=== PATIENT | female | born 1970 | race Caucasian/White ===

== ENCOUNTER 2019-10-20 07:48 | Day surgery (SDC) | payer BC ==
[~2019-10-20 07:48] MED LIST: Lactated Ringers 1,000 ML IV SCH; Lidocaine 1%/Sod Bicarbonate in NS 8.4% 1 ML Syringe IDERM PRN; Sodium Chloride 0.9% 10 ML Syringe FLUSH PRN
[2019-10-20] MEDS ORDERED: Propofol 200 MG/20 ML SDV ONE ×2 (08:06→08:51)
[2019-10-20] MEDS ORDERED: fentaNYL 100 MCG/2 ML SDV ONE (08:07)
[2019-10-20] MEDS ORDERED: Lidocaine 1% 4 ML ONE (08:07)
--- NOTE | 2019-10-20 08:24 | PCM.PREANE ---
Preanesthetic Assessment - Anesthesia/Transfusion/Family Hx Anesthesia History: Prior Anesthesia Without Reaction Transfusion History: No Prior Transfusion(s) - Physical Assessment NPO Status Date: 10/19/19 NPO Status Time: 04:00 ASA Class: 1 Mental Status: Alert & Oriented x3 Airway Class: Mallampati = 1 Dentition: Reports: Normal Dentition Thyro-Mental Finger Breadths: 3 Mouth Opening Finger Breadths: 3 ROM/Head Extension: Full Lungs: Clear to Auscultation, Normal Respiratory Effort Cardiovascular: Regular Rate, Regular Rhythm - Allergies Allergies/Adverse Reactions: Allergies Allergy/AdvReac Type Severity Reaction Status Date / Time No Known Allergies Allergy Verified 10/19/19 13:54 - Acknowledgements Anesthesia Type Planned: MAC Pt an Appropriate Candidate for the Planned Anesthesia: Yes Alternatives and Risks of Anesthesia Discussed w Pt/Guardian: Yes Pt/Guardian Understands and Agrees with Anesthesia Plan: Yes PreAnesthesia Questionnaire Gastrointestinal History: Reports: Chronic Constipation, Hemorrhoids, Other ( See Below) Other Gastrointestinal History: Abdominal Pain Genitourinary History: Reports: Other (See Below) Other Genitourinary History: Flank Pain, Hematuria Musculoskeletal History: Reports: Arthritis, Osteoporosis Psychiatric History: Reports: Anxiety, Depression, Other (See Below) Other Psychiatric History: Anxiety with flying; Insomnia Oncologic (Cancer) History: Reports: Breast - Past Surgical History HEENT Surgical History: Reports: None Cardiovascular Surgical History: Reports: None Respiratory Surgical History: Reports: None GI Surgical History: Reports: None Female Surgical History: Reports: Breast Biopsy, Mastectomy, Other (See Below ) Other Female Surgeries/Procedures: Breast Augmentation, Breast Lumpectomy, Partial Masectomy to the Left Endocrine Surgical History: Reports: None Neurological Surgical History: Reports: None Musculoskeletal Surgical History: Reports: Other (See Below) Other Musculoskeletal Surgeries/Procedures:: Patient reports right knee sugery. Oncologic Surgical History: Reports: Mastectomy Dermatological Surgical History: Reports: None - SUBSTANCE USE Smoking Status *Q: Never Smoker Recreational Drug Use History: No - HOME MEDS Home Medications: Home Meds Anastrozole [Arimidex] 1 mg PO DAILY 10/19/19 [History] Calcium Carbonate [Calcium] 500 mg PO DAILY 10/19/19 [History] Cholecalciferol (Vitamin D3) [Vitamin D3] 1 cap PO DAILY 10/19/19 [History] Escitalopram Oxalate 20 mg PO DAILY 10/19/19 [History] Fish Oil/Lemmon-3 Fatty Acids [Fish Oil 1,000 MG] 1,000 mg PO DAILY 10/19/19 [ History] LORazepam [Lorazepam] 1.5 mg PO DAILY PRN 10/19/19 [History] Magnesium Citrate 400 mg PO DAILY 10/19/19 [History] Melatonin 20 mg PO BEDTIME 10/19/19 [History] Naltrexone 4.5 mg PO BEDTIME 10/19/19 [History] - CURRENT (IN HOUSE) MEDS Current Meds: Current Medications Lactated Ringer's (Ringers, Lactated) 1,000 mls @ 125 mls/hr IV ASDIRECTED CECILIO Stop: 10/20/19 23:00 Lidocaine/Sodium Bicarbonate (Buffered Lidocaine 1% In Ns 8.4%) 0.25 ml IDERM ONETIME PRN PRN Reason: Prior to IV Start Stop: 10/20/19 18:00 Sodium Chloride (Saline Flush) 10 ml FLUSH ASDIRECTED PRN PRN Reason: Keep Vein Open Stop: 10/20/19 18:00 Discontinued Medications Fentanyl (Sublimaze) Confirm Administered Dose 100 mcg .ROUTE .STK-MED ONE Stop: 10/20/19 08:08 Lidocaine HCl (Xylocaine-Mpf 1%) Confirm Administered Dose 4 mls @ as directed .ROUTE .STK-MED ONE Stop: 10/20/19 08:08 Propofol (Diprivan 20 Ml) Confirm Administered Dose 400 mg .ROUTE .STK-MED ONE Stop: 10/20/19 08:07
--- NOTE | 2019-10-20 09:17 | PCM.PRNOTE ---
- Free Text/Narrative Note: Date: 10/20/2019 Procedure: screening colonoscopy Endoscopist: Yannick Arellano MD Findings: Melanosis coli. Redundant colon. Two sessile polyps identified and removed. Ileocecal valve visualized. Scattered wide-mouthed diverticula of the sigmoid colon. Prep was very good. Detailed Report: The patient was taken to the endoscopy suite and placed in left lateral decubitus position. Time out was performed and monitored anesthesia care was initiated. The anus appeared normal. Digital rectal exam was unremarkable. The lubricated colonoscope was then inserted and advanced all the way to the cecum. Melanosis coli noted. Due to redundancy making the procedure challenging the patient had to be repositioned supine. The ileocecal valve was visualized. The prep was noted to be very good. On slow withdrawal of the scope, mucosal surfaces were carefully inspected. A sessile cecal polyp about 7 mm in greatest dimension was biopsied piecemeal with the hot forceps and the remaining tissue was cauterized. A similar, smaller lesion was identified in the sigmoid colon and biopsied and cauterized in identical fashion. A few wide-mouth diverticula were noted in the sigmoid. There was no significant hemorrhoidal disease noted on retroflexion of the scope within the rectum. The patient tolerated the procedure well. Yannick Arellano MD General Surgery
--- NOTE | 2019-10-20 09:26 | PCM48HPAN ---
Post Anesthesia Note - EVALUATION WITHIN 48HRS OF ANESTHETIC Vital Signs in Normal Range: Yes Patient Participated in Evaluation: Yes Respiratory Function Stable: Yes Airway Patent: Yes Cardiovascular Function Stable: Yes Hydration Status Stable: Yes Pain Control Satisfactory: Yes Nausea and Vomiting Control Satisfactory: Yes Mental Status Recovered: Yes Vital Signs: Last Vital Signs Temp 97.0 F 10/20/19 09:15 Pulse 54 L 10/20/19 09:15 Resp 16 10/20/19 09:15 BP 108/53 L 10/20/19 09:15 Pulse Ox 100 10/20/19 09:15
== END 2019-10-20 10:00 | disposition home or self-care (01) ==
LOC: JD.SDS 07:48
PROVIDERS: ATTEND Surgery
DX: Z12.11 Encounter for screening for malignant neoplasm of colon (principal); D12.0 Benign neoplasm of cecum; D12.5 Benign neoplasm of sigmoid colon; K63.89 Other specified diseases of intestine; K57.30 Diverticulosis of large intestine without perforation or abscess without bleeding; F41.9 Anxiety disorder, unspecified; F32.9 Major depressive disorder, single episode, unspecified; Z79.899 Other long term (current) drug therapy
CPT/HCPCS: J2001; J2704; J3010; J7120

== ENCOUNTER 2020-05-28 20:27 | Emergency (ER) | payer BC ==
[2020-05-28] MEDS ORDERED: Ibuprofen 600 MG Tab PO ONE (20:53)
--- NOTE | 2020-05-28 20:57 | EDM.PDOC ---
ED HPI GENERAL MEDICAL PROBLEM - General Chief Complaint: Lower Extremity Injury/Pain Stated Complaint: FELL OFF LADDER INJURING LEFT ANKLE Time Seen by Provider: 05/28/20 20:35 Source of Information: Reports: Patient History Limitations: Reports: No Limitations - History of Present Illness INITIAL COMMENTS - FREE TEXT/NARRATIVE: The patient presents with left ankle and foot injury. The patient was decorating and she was up on a 3 step ladder and she fell and twisted her left ankle. She did not hurt her head or neck. She has pain and swelling to the left lateral ankle and foot. She has good sensation and pulses. Onset: Sudden Duration: Minutes: Location: Reports: Lower Extremity, Left (ankle and foot) Quality: Reports: Sharp Severity: Severe Improves with: Reports: Immobilization Worsens with: Reports: Movement Context: Reports: Trauma (fell off of a 3 stepped ladder) Associated Symptoms: Reports: No Other Symptoms Left Ankle Pain Score (Numeric/FACES): 10 - Related Data Allergies Allergy/AdvReac Type Severity Reaction Status Date / Time diphenhydramine Allergy Severe Itching Verified 05/28/20 20:36 [From Benadryl] tramadol Allergy Severe Rash Verified 05/28/20 20:36 Home Meds: Home Meds Anastrozole [Arimidex] 1 mg PO DAILY 10/19/19 [History] Calcium Carbonate [Calcium] 500 mg PO DAILY 10/19/19 [History] Cholecalciferol (Vitamin D3) [Vitamin D3] 1 cap PO DAILY 10/19/19 [History] Escitalopram Oxalate 20 mg PO DAILY 10/19/19 [History] Fish Oil/Clark-3 Fatty Acids [Fish Oil 1,000 MG] 1,000 mg PO DAILY 10/19/19 [History] LORazepam [Lorazepam] 1.5 mg PO DAILY PRN 10/19/19 [History] Magnesium Citrate 400 mg PO DAILY PRN 10/19/19 [History] Melatonin 20 mg PO BEDTIME 10/19/19 [History] Naltrexone 4.5 mg PO BEDTIME 10/19/19 [History] Past Medical History Gastrointestinal History: Reports: Chronic Constipation, Hemorrhoids, Other (See Below) Other Gastrointestinal History: Abdominal Pain Genitourinary History: Reports: Other (See Below) Other Genitourinary History: Flank Pain, Hematuria Musculoskeletal History: Reports: Arthritis, Osteoporosis Psychiatric History: Reports: Anxiety, Depression, Other (See Below) Other Psychiatric History: Anxiety with flying; Insomnia Oncologic (Cancer) History: Reports: Breast - Past Surgical History Cardiovascular Surgical History: Reports: None Respiratory Surgical History: Reports: None Female Surgical History: Reports: Breast Biopsy, Mastectomy, Other (See Below) Other Female Surgeries/Procedures: Breast Augmentation, Breast Lumpectomy, Partial Masectomy to the Left, breast reconstruction sx Endocrine Surgical History: Reports: None Neurological Surgical History: Reports: None Musculoskeletal Surgical History: Reports: Other (See Below) Other Musculoskeletal Surgeries/Procedures:: Patient reports right knee sugery. Oncologic Surgical History: Reports: Mastectomy Dermatological Surgical History: Reports: None Social & Family History - Family History Family Medical History: Noncontributory - Tobacco Use Smoking Status *Q: Never Smoker - Caffeine Use Caffeine Use: Reports: Coffee - Recreational Drug Use Recreational Drug Use: No Review of Systems - Review of Systems Review Of Systems: See Below Constitutional: Reports: No Symptoms Eyes: Reports: No Symptoms Ears: Reports: No Symptoms Nose: Reports: No Symptoms Mouth/Throat: Reports: No Symptoms Respiratory: Reports: No Symptoms Cardiovascular: Reports: No Symptoms GI/Abdominal: Reports: No Symptoms Genitourinary: Reports: No Symptoms Musculoskeletal: Reports: Other (Left lateral ankle and foot swelling and pain upon palpation. Good sensation and pulses distally ) ED EXAM, GENERAL - Physical Exam Exam: See Below Exam Limited By: No Limitations General Appearance: Alert, No Apparent Distress Ears: Normal External Exam Nose: Normal Inspection Head: Atraumatic, Normocephalic Neck: Normal Inspection Respiratory/Chest: No Respiratory Distress, Lungs Clear, Normal Breath Sounds Cardiovascular: Regular Rate, Rhythm, No Edema, No Murmur GI/Abdominal: Soft, Non-Tender, No Organomegaly, No Mass Back Exam: Normal Inspection Extremities: Other (Left lateral ankle and foot edema and pain upon palpatoin with good sensation and pulses distally.) Course - Vital Signs Last Recorded V/S: Last Vital Signs Temp 97.3 F 05/28/20 20:34 Pulse 86 05/28/20 20:34 Resp 18 05/28/20 20:34 BP 142/91 H 05/28/20 20:34 Pulse Ox 96 05/28/20 20:34 - Orders/Labs/Meds Orders: Active Orders 24 hr Category Date Time Status Ankle Min 3V Lt [CR] Stat Exams 10/10/20 20:48 Taken Foot Comp Min 3V Lt [CR] Stat Exams 05/28/20 20:49 Taken Meds: Medications Discontinued Medications Generic Name Dose Route Start Last Admin Trade Name Keyana PRN Reason Stop Dose Admin Ibuprofen 600 mg 05/28/20 20:53 05/28/20 20:59 Motrin PO 05/28/20 20:54 600 mg ONETIME ONE Administration - Re-Assessments/Exams Free Text/Narrative Re-Assessment/Exam: 05/28/20 20:57 I ordered an x-ray of her foot and ankle. 05/28/20 22:02 Her foot x-ray looks good. Her ankle x-ray shows a possible chip fracture. The fracture did look old but it is right over where she has the pain and swelling. I will get her in a walking boot, crutches and something for pain. I will have her follow up with Dr Castillo. Departure - Departure Time of Disposition: 22:05 Disposition: Home, Self-Care 01 Condition: Good Clinical Impression: Fall Qualifiers: Encounter type: initial encounter Qualified Code(s): W19.XXXA - Unspecified fall, initial encounter Fracture of distal fibula Qualifiers: Encounter type: initial encounter Fracture type: closed Fracture morphology: other fracture Laterality: left Qualified Code(s): S82.832A - Other fracture of upper and lower end of left fibula, initial encounter for closed fracture - Discharge Information *PRESCRIPTION DRUG MONITORING PROGRAM REVIEWED*: Not Applicable *COPY OF PRESCRIPTION DRUG MONITORING REPORT IN PATIENT JOYCE: Not Applicable Referrals: Crystal Stock NP [Primary Care Provider] - Deejay Castillo MD [Physician] - 1 Week Forms: ED Department Discharge Additional Instructions: Ice your ankle for 15 minutes 3 times per day for 2 days. Try to elevate your ankle as much as you can for 2 days. Take tylenol or motrin for pain. If that does not help, try the hydrocodone. Follow up with Dr Castillo within a week. Sepsis Event Note (ED) - Evaluation Sepsis Screening Result: No Definite Risk - Focused Exam Vital Signs: Vital Signs Temp Pulse Resp BP Pulse Ox 05/28/20 20:34 97.3 F 86 18 142/91 H 96 - My Orders Last 24 Hours: My Active Orders 05/28/20 20:48 Ankle Min 3V Lt [CR] Stat 05/28/20 20:49 Foot Comp Min 3V Lt [CR] Stat - Assessment/Plan Last 24 Hours: My Active Orders 05/28/20 20:48 Ankle Min 3V Lt [CR] Stat 05/28/20 20:49 Foot Comp Min 3V Lt [CR] Stat
--- NOTE | 2020-06-21 12:14 | CR ---
PROCEDURE INFORMATION: Exam: XR Left Ankle Exam date and time: 05/28/2020 9:30 PM Age: 49 years old Clinical indication: Pain; Ankle; Left TECHNIQUE: Imaging protocol: XR Left ankle. Views: 3 or more views. COMPARISON: No relevant prior studies available. FINDINGS: Bones/joints: There is a 4 mm oval bony fragment inferior to the fibular tip. This is rounded and corticated in appearance. The abnormalities involving the distal talus and the distal navicular initially suspect on the foot exam performed the same setting are not well seen on the current study. Soft tissues: No other unusual soft tissue calcifications. There is soft tissue swelling on the dorsum IMPRESSION: 1. There is a 4 mm oval bony fragment inferior to the fibular tip. This likely is chronic in nature. 2. There is soft tissue swelling on the dorsum. Correlate with point tenderness. 3. The subtle bony abnormalities initially suspect in the distal talus and navicular on the foot exam are not readily apparent on the current study. If there is pain or tenderness on the dorsum of the foot consider follow-up studies and/or MR Thank you for allowing us to participate in the care of your patient. Dictated and Authenticated by: Milan Hearn MD 06/20/2020 10:33 PM Central Time ([place] & [place]) [place]
== END 2020-05-28 22:30 | disposition home or self-care (01) ==
LOC: JD.ED 20:27
DX: S82.832A Other fracture of upper and lower end of left fibula, initial encounter for closed fracture (principal); Z88.8 Allergy status to other drugs, medicaments and biological substances; Z88.5 Allergy status to narcotic agent; W11.XXXA Fall on and from ladder, initial encounter
CPT/HCPCS: 73610; 73630; 99283; A9270